=== PATIENT | female | born 1975 | race Two or more races ===

== ENCOUNTER → 2017-09-24 | Outpatient (CLI) | payer BC ==
[~2017-09-24] MED LIST: MULT-516 PO; NITR100C PO
[2017-09-24 15:58] LABS: BASOPHILS # (AUTO) 0.07 x10^3/uL (0-0.1); BASOPHILS % (AUTO) 1 % (0-1); EOSINOPHILS # (AUTO) 0.36 x10^3/uL (0-0.4); EOSINOPHILS % (AUTO) 5 % (1-7); LYMPHOCYTES # (AUTO) 2.95 x10^3/uL (1-3.4); LYMPHOCYTES % (AUTO) 39 % (22-44); MD NO; MEAN CORPUSCULAR HEMOGLOBIN 30.9 pg (27.0-34.8); MEAN CORPUSCULAR HGB CONC 33.2 g/dL (32.4-35.8); MEAN CORPUSCULAR VOLUME 93.3 fL (80-100); MEAN PLATELET VOLUME 8.9 fL (7.4-10.4); MONOCYTES # (AUTO) 0.43 x10^3/uL (0.2-0.8); MONOCYTES % (AUTO) 6 % (2-9); NEUTROPHILS # (AUTO) 3.76 x10^3/uL (1.8-6.8); NEUTROPHILS % (AUTO) 50 % (42-75); PLATELET COUNT 279 x10^3/uL (130-400); RED BLOOD COUNT 4.15 x10^6/uL (3.82-5.3); RED CELL DISTRIBUTION WIDTH 13.1 % (9.6-15.2)
[2017-09-24 16:17] LABS: HCG UR SG 1.029 (1.003-1.030); MICROSCOPIC NOT IND
[2017-09-24 16:23] LABS: CULTURE INDICATED? NO
== END ==
LOC: STAR 14:57
PROVIDERS: ATTEND Obstetrics & Gynecology
DX: Z01.818 Encounter for other preprocedural examination (principal)
CPT/HCPCS: 36415; 81003; 81025; 85025

== ENCOUNTER 2017-10-07 06:58 | Day surgery (SDC) | payer BC ==
[~2017-10-07] VITALS: Ht 160 cm; Wt 72.4 kg
[2017-10-07] MEDS ORDERED: LACTATED RINGERS 1,000 ML IV SCH (07:22)
[2017-10-07] MEDS ORDERED: GABAPENTIN 300 MG CAPSULE PO ONE (07:30)
[2017-10-07] MEDS ORDERED: ACETAMINOPHEN 500 MG TABLET PO ONE (07:30)
[2017-10-07 07:37] VITALS: BP 121/80
[2017-10-07 07:56] LABS: HCG UR SG 1.027 (1.003-1.030)
[2017-10-07] MEDS ORDERED: BUPIVACAINE/PF 0.5% ONE (08:39)
[2017-10-07] MEDS ORDERED: EPINEPHRINE 1 MG/ML, 1ML ONE (08:39)
[2017-10-07] MEDS ORDERED: THROMBIN 5,000 UNIT VIAL TP ONE (08:39)
[2017-10-07] MEDS ORDERED: NEOMY/POLYMYXIN B GU IRR. 1 ML IRRIG ONE (08:40)
[2017-10-07] MEDS ORDERED: ROCURONIUM 10MG/ML,5ML ONE (08:56)
[2017-10-07] MEDS ORDERED: CEFAZOLIN 1,000 MG ONE (08:56)
[2017-10-07] MEDS ORDERED: PROPOFOL 10 MG/ML, 20ML ONE (08:56)
[2017-10-07] MEDS ORDERED: DEXAMETHASONE 4 MG/ML, 1ML ONE ×2 (08:57)
[2017-10-07] MEDS ORDERED: FENTANYL PF 100 MCG/2ML ONE (08:58)
[2017-10-07] MEDS ORDERED: MIDAZOLAM 1 MG/ML, 2ML ONE (08:58)
[2017-10-07] MEDS ORDERED: MORPHINE SULFATE 4 MG/ML, 1ML IVPush PRN (09:30)
[2017-10-07] MEDS ORDERED: EPHEDRINE 50 MG/ML, 1ML IVPush PRN (09:30)
[2017-10-07] MEDS ORDERED: METOPROLOL 1 MG/ML, 5ML IV PRN (09:30)
[2017-10-07] MEDS ORDERED: ALBUTEROL SULFATE 2.5 MG/3 ML NPPB PRN (09:30)
[2017-10-07] MEDS ORDERED: FENTANYL PF 100 MCG/2ML IV PRN (09:30)
[2017-10-07] MEDS ORDERED: LABETALOL 5MG/ML, 20ML IV PRN (09:30)
[2017-10-07] MEDS ORDERED: HALOPERIDOL 5 MG/ML IV PRN (09:30)
[2017-10-07] MEDS ORDERED: PROMETHAZINE 25 MG/ML, 1ML IV PRN (09:30)
[2017-10-07] MEDS ORDERED: OXYcodone 5 MG/5 ML ORAL.SOL UDC PO PRN (09:30)
[2017-10-07] MEDS ORDERED: MEPERIDINE/PF 25MG/0.5ML IVPush PRN (09:30)
[2017-10-07] MEDS ORDERED: hydrALAzine 20 MG/ML, 1ML IV PRN (09:30)
[2017-10-07] MEDS ORDERED: ONDANSETRON 2MG/ML, 2ML ONE ×3 (09:50→15:45)
[2017-10-07] MEDS ORDERED: FLUORESCEIN SODIUM 500 MG/5 ML ONE (09:54)
[2017-10-07] MEDS ORDERED: MEPERIDINE/PF 50 MG/ML ONE (10:41)
[2017-10-07] MEDS ORDERED: GLYCOPYRROLATE 0.2MG/1ML, 5ML ONE (15:45)
[2017-10-07] MEDS ORDERED: NEOSTIGMINE 1 MG/ML, 10ML ONE (15:45)
== END 2017-10-07 17:30 | disposition home or self-care (01) ==
LOC: OUT 06:58
PROVIDERS: ATTEND Obstetrics & Gynecology
DX: N39.3 Stress incontinence (female) (male) (principal); Z64.1 Problems related to multiparity; Z79.2 Long term (current) use of antibiotics; Z98.890 Other specified postprocedural states; Z90.49 Acquired absence of other specified parts of digestive tract; Z82.5 Family history of asthma and other chronic lower respiratory diseases; Z80.3 Family history of malignant neoplasm of breast
CPT/HCPCS: 36415; 57288; 81025; 86850; 86900; C1771; J0171; J0690; J1100; J2175; J2250; J2405; J2704; J2710; J3010; J3490; J7120

== ENCOUNTER → 2018-02-11 | Outpatient (CLI) | payer BC ==
[~2018-02-11] MED LIST changes: +IBUP-1223 PO; +SUMA50TA4 PO
[2018-02-11 08:44] LABS: BASOPHILS # (AUTO) 0.07 x10^3/uL (0-0.1); BASOPHILS % (AUTO) 1 % (0-1); EOSINOPHILS # (AUTO) 0.38 x10^3/uL (0-0.4); EOSINOPHILS % (AUTO) 5 % (1-7); LYMPHOCYTES # (AUTO) 2.72 x10^3/uL (1-3.4); LYMPHOCYTES % (AUTO) 34 % (22-44); MD NO; MEAN CORPUSCULAR HEMOGLOBIN 30.8 pg (27.0-34.8); MEAN CORPUSCULAR HGB CONC 33.6 g/dL (32.4-35.8); MEAN CORPUSCULAR VOLUME 91.9 fL (80-100); MEAN PLATELET VOLUME 7.7 fL (7.4-10.4); MONOCYTES # (AUTO) 0.51 x10^3/uL (0.2-0.8); MONOCYTES % (AUTO) 6 % (2-9); NEUTROPHILS % (AUTO) 54 % (42-75); PLATELET COUNT 323 x10^3/uL (130-400); RED BLOOD COUNT 4.42 x10^6/uL (3.82-5.3); RED CELL DISTRIBUTION WIDTH 13.3 % (9.6-15.2)
[2018-02-11 08:47] LABS: CULTURE INDICATED? YES; MICROSCOPIC AUTO
== END | disposition home or self-care (01) ==
LOC: STAR 08:01
PROVIDERS: ATTEND Obstetrics & Gynecology
DX: Z01.818 Encounter for other preprocedural examination (principal); T83.718A Erosion of other implanted mesh to organ or tissue, initial encounter
CPT/HCPCS: 36415; 81001; 81025; 85025; 87086

== ENCOUNTER 2018-02-18 05:38 | Day surgery (SDC) | payer BC ==
[~2018-02-18] VITALS: Ht 160 cm; Wt 76.0 kg
[2018-02-18] MEDS ORDERED: LACTATED RINGERS 1,000 ML IV SCH (06:03)
[2018-02-18 06:20] VITALS: BP 119/80
[2018-02-18] MEDS ORDERED: ACETAMINOPHEN 500 MG TABLET PO ONE (06:30)
[2018-02-18 06:53] LABS: HCG UR SG 1.025 (1.003-1.030)
[2018-02-18] MEDS ORDERED: FENTANYL PF 100 MCG/2ML ONE (07:48)
[2018-02-18] MEDS ORDERED: FLUORESCEIN SODIUM 500 MG/5 ML ONE (07:49)
[2018-02-18] MEDS ORDERED: BUPIVACAINE/PF-EPI 0.25% 1:200K ONE (07:49)
[2018-02-18] MEDS ORDERED: NEOMY/POLYMYXIN B GU IRR. 1 ML IRRIG ONE (07:49)
[2018-02-18] MEDS ORDERED: PROPOFOL 10 MG/ML, 20ML ONE (08:00)
[2018-02-18] MEDS ORDERED: SUCCINYLCHOLINE 20 MG/ML, 10ML ONE (08:00)
[2018-02-18] MEDS ORDERED: CEFAZOLIN 1,000 MG ONE (08:00)
[2018-02-18] MEDS ORDERED: ROCURONIUM 10 MG/ML,10ML ONE (08:00)
[2018-02-18] MEDS ORDERED: MIDAZOLAM 1 MG/ML, 2ML ONE (08:01)
[2018-02-18] MEDS ORDERED: DIAZEPAM 5 MG/ML, 2ML IVPush PRN (08:30)
[2018-02-18] MEDS ORDERED: OXYcodone 5 MG/5 ML ORAL.SOL UDC PO PRN (08:30)
[2018-02-18] MEDS ORDERED: ONDANSETRON ODT 8 MG PO PRN (08:30)
[2018-02-18] MEDS ORDERED: PROCHLORPERAZINE 5 MG/ML, 2ML IV PRN (08:30)
[2018-02-18] MEDS ORDERED: ACETAMINOPHEN 325 MG TABLET PO PRN (08:30)
[2018-02-18] MEDS ORDERED: MORPHINE SULFATE 4 MG/ML, 1ML IVPush PRN (08:30)
[2018-02-18] MEDS ORDERED: ONDANSETRON 2MG/ML, 2ML IV PRN (08:30)
[2018-02-18] MEDS ORDERED: MEPERIDINE/PF 25MG/0.5ML IVPush PRN (08:30)
[2018-02-18] MEDS ORDERED: FENTANYL PF 100 MCG/2ML IV PRN (08:30)
[2018-02-18] MEDS ORDERED: HYDROmorphone 1 MG/ML, 1ML IV PRN (08:30)
== END 2018-02-18 09:43 | disposition home or self-care (01) ==
LOC: OUT 05:38
PROVIDERS: ATTEND Obstetrics & Gynecology
DX: T83.718A Erosion of other implanted mesh to organ or tissue, initial encounter (principal); Y83.8 Other surgical procedures as the cause of abnormal reaction of the patient, or of later complication, without mention of misadventure at the time of the procedure; Y92.89 Other specified places as the place of occurrence of the external cause; Z72.89 Other problems related to lifestyle; Z98.890 Other specified postprocedural states
CPT/HCPCS: 57287; 81025; J0330; J0690; J2250; J2704; J3010

== ENCOUNTER 2018-02-18 19:13 | Emergency (ER) | payer BC ==
[~2018-02-18] VITALS: Ht 160 cm; Wt 77.0 kg
[2018-02-18 19:26] VITALS: BP 129/82
[2018-02-18 20:03] LABS: BASOPHILS # (AUTO) 0.02 x10^3/uL (0-0.1); BASOPHILS % (AUTO) 0 % (0-1); EOSINOPHILS % (AUTO) 0 % (1-7); LYMPHOCYTES # (AUTO) 1.43 x10^3/uL (1-3.4); LYMPHOCYTES % (AUTO) 10 % (22-44); MD NO; MEAN CORPUSCULAR HEMOGLOBIN 31.2 pg (27.0-34.8); MEAN CORPUSCULAR HGB CONC 33.5 g/dL (32.4-35.8); MEAN CORPUSCULAR VOLUME 93.1 fL (80-100); MEAN PLATELET VOLUME 7.9 fL (7.4-10.4); MONOCYTES # (AUTO) 0.26 x10^3/uL (0.2-0.8); MONOCYTES % (AUTO) 2 % (2-9); NEUTROPHILS % (AUTO) 88 % (42-75); PLATELET COUNT 366 x10^3/uL (130-400); RED BLOOD COUNT 4.53 x10^6/uL (3.82-5.3); RED CELL DISTRIBUTION WIDTH 13.3 % (9.6-15.2)
[2018-02-18 20:10] LABS: ALANINE AMINOTRANSFERASE 44 U/L (12-78); ALBUMIN 3.9 g/dL (3.4-5.0); ANION GAP 9 mmol/L (5-15); CALCIUM 8.9 mg/dL (8.5-10.1); CHLORIDE 107 mmol/L (98-107)
[2018-02-18 20:12] LABS: ALKALINE PHOSPHATASE 101 U/L (45-117); BILIRUBIN,TOTAL 0.3 mg/dL (0.2-1.0); TOTAL PROTEIN 8.2 g/dL (6.4-8.2)
== END 2018-02-18 22:14 | disposition home or self-care (01) ==
LOC: ED 22:03
DX: R20.2 Paresthesia of skin (principal)
CPT/HCPCS: 36415; 80053; 85025; 93005; 99285